=== PATIENT | female | born 1980 | race Caucasian/White ===

== ENCOUNTER 2017-11-21 13:44 | Emergency (ER) | payer SELFPAY ==
[~2017-11-21] VITALS: Ht 152.4 cm; Wt 60.3 kg
[2017-11-21 13:47] VITALS: Ht 152.4 cm; Wt 60.3 kg
[2017-11-21 16:00] LABS: BASOPHIL % 0.3 % (0-2); PLATELET COUNT 317 x10^3mcL (130-400); RED CELL DISTRIBUTION WIDTH 12.4 % (11.5-14.5)
[2017-11-21 16:42] LABS: UA SPECIFIC GRAVITY <=1.005 (1.005-1.035); microscopic required? YES; urine erythrocyte 2+ (NEGATIVE)
[2017-11-21 19:11] VITALS: BP 101/60
== END 2017-11-21 19:11 | disposition home or self-care (01) ==
LOC: ED 13:44
PROVIDERS: Emergency Medicine
DX: O26.891 Other specified pregnancy related conditions, first trimester (principal); Z3A.09 9 weeks gestation of pregnancy
CPT/HCPCS: 36415